=== PATIENT | male | born 1940 | race Caucasian/White ===

== ENCOUNTER 2017-07-13 17:55 | Emergency (ER) | payer MEDICARE, OTHER ==
[~2017-07-13] VITALS: Ht 172.7 cm; Wt 80.0 kg
[2017-07-13 18:10] VITALS: BP 189/86; PULSE 76; RESP 17; TEMP 98.2; O2SAT 100
[2017-07-13] MEDS ORDERED: SERO50TA PO (18:14)
[2017-07-13] MEDS ORDERED: ALPR.5 PO (18:14)
[2017-07-13] MEDS ORDERED: ALPRAZolam 0.5 MG TAB PO ONE (18:15)
[2017-07-13] MEDS ORDERED: HALOPERIDOL 2 MG TAB PO ONE (18:15)
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
[2017-07-13 18:41] VITALS: BP 154/74; PULSE 65; RESP 16; O2SAT 98
== END 2017-07-13 19:33 | disposition home or self-care (01) ==
LOC: NEPD 17:55
DX: F02.81 Dementia in other diseases classified elsewhere, unspecified severity, with behavioral disturbance (principal); G30.9 Alzheimer's disease, unspecified
CPT/HCPCS: 99282

== ENCOUNTER 2017-08-12 17:29 | Inpatient (IN) | payer MEDICARE, OTHER ==
[~2017-08-12] VITALS: Ht 177.8 cm; Wt 78.8 kg
[~2017-08-12 17:29] MED LIST: ALPR.5 PO; SERO50TA PO
[2017-08-12 17:38] VITALS: BP 177/84; PULSE 71; RESP 19; TEMP 98.1; O2SAT 99
[2017-08-12] MEDS ORDERED: ALPR.5 PO (17:44)
--- NOTE | 2017-08-12 18:06 | PD ---
HPI Chief Complaint: Medical Clearance Time Seen by Provider: 17:38 Travel History International Travel<30 days: No Contact w/Intl Traveler<30days: No Traveled to known affect area: No History of Present Illness HPI 77-year-old male with history of dementia on Seroquel and Xanax as needed, brought in by ambulance from home for evaluation of aggressive behavior towards . Upon arrival to the emergency department the patient is awake and alert and is oriented to person and place. He denies any physical complaints. Patient's arrived shortly after the patient did and she tells me that this is his third episode of aggressive behavior/paranoid/delusional thoughts. She tells me that there are times such as today where the patient does not recognize her and becomes paranoid that she is going to do something to him. This causes him to act aggressively. Here in the emergency department the patient is calm and recognizes his . PFSH Past Medical History Alzheimer's Disease: Yes Cancer: Yes (skin cancer) Diminished Hearing: No Neurologic: Yes Psychiatric: Yes Tetanus Vaccination: < 5 Years Influenza Vaccination: Yes Past Surgical History Cholecystectomy: Yes Other Surgery: Yes (TRIGGER FINGER, SKIN CA) Social History Alcohol Use: Yes (BEER DAILY) Tobacco Use: No Substance Use: No Allergies-Medications (Allergen,Severity, Reaction): Coded Allergies: No Known Allergies (Unverified , 08/12/17) Reported Meds & Prescriptions Reported Meds & Active Scripts Active Reported Xanax (Alprazolam) 0.5 Mg Tab 0.5 Mg PO Q6H PRN Seroquel (Quetiapine Fumarate) 50 Mg Tab 50 Mg PO DAILY Review of Systems Except as stated in HPI: all other systems reviewed are Neg Physical Exam Narrative GENERAL: Well-developed, well-nourished, awake, alert, calm, no apparent distress. SKIN: Focused skin assessment warm/dry. Left neck with surgical incision where a skin cancer was removed on with sutures in place, clean, dry, intact , no warmth or erythema. HEAD: Atraumatic. Normocephalic. EYES: Pupils equal and round. No scleral icterus. No injection or drainage. ENT: No nasal bleeding or discharge. Mucous membranes pink and moist. NECK: Trachea midline. No JVD. Skin exam as above. CARDIOVASCULAR: Regular rate and rhythm. RESPIRATORY: No accessory muscle use. Clear to auscultation. Breath sounds equal bilaterally. GASTROINTESTINAL: Abdomen soft, non-tender, nondistended. Hepatic and splenic margins not palpable. MUSCULOSKELETAL: No obvious deformities. No clubbing. No cyanosis. No edema. NEUROLOGICAL: Awake and alert. No obvious cranial nerve deficits. Motor grossly within normal limits. Normal speech. PSYCHIATRIC: Appropriate mood and affect; calm. Data Data Last Documented VS Vital Signs Date Time Temp Pulse Resp B/P (MAP) Pulse Ox O2 Delivery O2 Flow Rate FiO2 08/12/17 17:38 98.1 71 19 177/84 (115) 99 Orders Orders Complete Blood Count With Diff (08/12/17 17:39) Comprehensive Metabolic Panel (08/12/17 17:39) Thyroid Stimulating Hormone (08/12/17 17:39) Urinalysis - C+S If Indicated (08/12/17 17:39) Psych Screen (08/12/17 17:39) Labs Laboratory Tests Test 08/12/17 17:55 White Blood Count 9.5 TH/MM3 Red Blood Count 4.62 MIL/MM3 Hemoglobin 14.2 GM/DL Hematocrit 41.6 % Mean Corpuscular Volume 89.9 FL Mean Corpuscular Hemoglobin 30.7 PG Mean Corpuscular Hemoglobin Concent 34.2 % Red Cell Distribution Width 13.7 % Platelet Count 459 TH/MM3 Mean Platelet Volume 8.0 FL Neutrophils (%) (Auto) 81.7 % Lymphocytes (%) (Auto) 12.7 % Monocytes (%) (Auto) 5.0 % Eosinophils (%) (Auto) 0.1 % Basophils (%) (Auto) 0.5 % Neutrophils # (Auto) 7.8 TH/MM3 Lymphocytes # (Auto) 1.2 TH/MM3 Monocytes # (Auto) 0.5 TH/MM3 Eosinophils # (Auto) 0.0 TH/MM3 Basophils # (Auto) 0.0 TH/MM3 CBC Comment DIFF FINAL Differential Comment Blood Urea Nitrogen 16 MG/DL Creatinine 1.25 MG/DL Random Glucose 103 MG/DL Albumin 3.6 GM/DL Calcium Level 9.1 MG/DL Aspartate Amino Transf (AST/SGOT) 21 U/L Alanine Aminotransferase (ALT/SGPT) 15 U/L Sodium Level 139 MEQ/L Potassium Level 3.9 MEQ/L Chloride Level 105 MEQ/L Carbon Dioxide Level 26.2 MEQ/L Anion Gap 8 MEQ/L Estimat Glomerular Filtration Rate 56 ML/MIN MDM Medical Decision Making Medical Screen Exam Complete: Yes Emergency Medical Condition: Yes Differential Diagnosis Dementia, paranoia Narrative Course Vital signs reviewed. Labs reviewed. The patient has been medically cleared for psychiatric evaluation and disposition by them. Diagnosis Primary Impression: Dementia Qualified Codes: F03.91 - Unspecified dementia with behavioral disturbance Additional Impression: Aggressive behavior Arnaud Fitzgerald MD Aug 12, 2017 18:06
[2017-08-12 18:26] LABS: AUTOMATED NEUTROPHIL # 7.8 TH/MM3 (1.8-7.7); BASOPHIL % 0.5 % (0.0-2.0); EOSINOPHIL % 0.1 % (0.0-4.0); HEMATOCRIT 41.6 % (39.0-51.0); HEMOGLOBIN 14.2 GM/DL (13.0-17.0); LYMPH % 12.7 % (9.0-44.0); LYMPHOCYTE # 1.2 TH/MM3 (1.0-4.8); MEAN CELL VOLUME 89.9 FL (80.0-100.0); MEAN CORPUSCULAR HEMOGLOBIN 30.7 PG (27.0-34.0); MEAN CORPUSCULAR HGB CONC 34.2 % (32.0-36.0); MONOCYTE # 0.5 TH/MM3 (0-0.9); NEUT % 81.7 % (16.0-70.0); PLATELET COUNT 459 TH/MM3 (150-450); RED BLOOD COUNT 4.62 MIL/MM3 (4.50-5.90); RED CELL DISTRIBUTION WIDTH 13.7 % (11.6-17.2); WHITE BLOOD COUNT 9.5 TH/MM3 (4.0-11.0)
[2017-08-12 18:47] LABS: ALBUMIN 3.6 GM/DL (3.4-5.0); ALT (GPT) 15 U/L (12-78); AST (GOT) 21 U/L (15-37); BICARBONATE 26.2 MEQ/L (21.0-32.0); BLOOD UREA NITROGEN 16 MG/DL (7-18); CALCIUM 9.1 MG/DL (8.5-10.1); CHLORIDE 105 MEQ/L (98-107); CREATININE 1.25 MG/DL (0.60-1.30); GLOMERULAR FILTRATION RATE 56 ML/MIN (>89); GLUCOSE,RANDOM 103 MG/DL (74-106); SODIUM (NA) 139 MEQ/L (136-145)
[2017-08-12 18:57] LABS: ALKALINE PHOSPHATASE 71 U/L (45-117); TOTAL BILIRUBIN ADULT 0.3 MG/DL (0.2-1.0); TOTAL PROTEIN 7.5 GM/DL (6.4-8.2)
[2017-08-12 19:09] LABS: BILIRUBIN, URINE NEG (NEG); BLOOD, URINE NEG (NEG); GLUCOSE,URINE NEG (NEG); KETONE, URINE NEG (NEG); NITRITE,URINE NEG (NEG); PH, URINE 5.5 (5.0-8.5); URINE COLOR YELLOW (YELLW/STRAW); URINE LEUKOCYTE ESTERASE TRACE (NEG)
[2017-08-12] MEDS ORDERED: ACETAMINOPHEN 325 MG TAB PO PRN (21:00)
[2017-08-12] MEDS ORDERED: MAGNESIUM HYDROXIDE SUSP 30 ML CUP PO PRN (21:00)
[2017-08-12] MEDS ORDERED: NICOTINE 21 MG/24 HR PATCH T-DERMAL PRN (21:00)
[2017-08-12] MEDS ORDERED: ALUMINUM/MAGNESIUM/SIMETH 30 ML CUP PO PRN (21:00)
[2017-08-12 22:00] VITALS: BP 185/84; PULSE 69; RESP 18; TEMP 97.3; O2SAT 97
[2017-08-13 05:33] VITALS: BP 189/88; PULSE 95; RESP 18; TEMP 97.9; O2SAT 96
[2017-08-13 07:35] VITALS: BP 164/92; PULSE 77
[2017-08-13 09:39] LABS: BICARBONATE 22.2 MEQ/L (21.0-32.0); BLOOD UREA NITROGEN 17 MG/DL (7-18); CALCIUM 9.5 MG/DL (8.5-10.1); CHLORIDE 104 MEQ/L (98-107); CREATININE 1.18 MG/DL (0.60-1.30); GLOMERULAR FILTRATION RATE 60 ML/MIN (>89); GLUCOSE,RANDOM 134 MG/DL (74-106); SODIUM (NA) 138 MEQ/L (136-145)
[2017-08-13 09:40] LABS: CHOLESTEROL 216 MG/DL (120-200); TRIGLYCERIDES 94 MG/DL (42-150)
[2017-08-13 09:42] LABS: CHOLESTEROL/ HDL RATIO 5.24 RATIO; HDL CHOLESTEROL 41.2 MG/DL (40.0-60.0); LDL CHOLESTEROL 156 MG/DL (0-99)
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
[2017-08-13] MEDS ORDERED: HALOPERIDOL LACTATE 5 MG/ML AMP IM PRN (12:00)
[2017-08-13] MEDS ORDERED: LORazepam 2 MG TAB PO PRN (12:15)
[2017-08-13] MEDS ORDERED: FLUMAZENIL 0.5 MG/5 ML VIAL IV PUSH PRN (12:15)
[2017-08-13] MEDS ORDERED: LORazepam 2 MG/ML VIAL IM PRN ×4 (12:15)
[2017-08-13 13:03] LABS: HEMOGLOBIN A1C 5.8 % (4.3-6.0)
[2017-08-13 14:25] VITALS: BP 191/90; PULSE 90; RESP 17; TEMP 97.2; O2SAT 97
[2017-08-13 14:30] VITALS: BP 191/90; PULSE 90; RESP 17; O2SAT 98
[2017-08-13] MEDS: cloNIDine HCL 0.1 MG TAB PO PRN (14:31)
[2017-08-13 15:40] VITALS: BP 161/70; PULSE 69; RESP 16; TEMP 98.1; O2SAT 98
--- NOTE | 2017-08-13 15:51 | PD.CONS ---
[facility] By Dr. Quick Reason for Consult Medical management, hypertension Primary Care Physician Zac Preciado MD Diagnoses: (1) Hypertension (2) Dementia (3) Aggressive behavior History of Present Illness 77-year-old male with a history significant for dementia admitted to the psychiatric unit for aggressive behavior toward his . The patient has significant dementia and d cannot contribute to the history. He says he feels fine. He can answer yes or no to some questions but is mostly inappropriate and confused. History obtained mostly from the chart. I attempted to call his but no one answered the phone. Since arrival to the hospital, the patient is noted to have elevated blood pressure. He denies any history of hypertension but as noted above he is quite confused. Review of Systems ROS Limitations: Clinical Condition, Altered Mental Status, Psychotic Past Family Social History Allergies: Coded Allergies: No Known Allergies (Unverified , 08/12/17) Past Medical History Dementia Past Surgical History Cholecystectomy Reported Medications Reported Meds & Active Scripts Active Reported Xanax (Alprazolam) 0.5 Mg Tab 0.5 Mg PO Q6H PRN Seroquel (Quetiapine Fumarate) 50 Mg Tab 50 Mg PO DAILY Family History Unable to obtain Social History Reportedly drank 1-2 beers daily. No reports of tobacco use. He normally lives at home with his . Physical Exam Vital Signs Vital Signs Date Time Temp Pulse Resp B/P (MAP) Pulse Ox O2 Delivery O2 Flow Rate FiO2 08/13/17 15:40 98.1 69 16 161/70 (100) 98 08/13/17 14:30 90 17 191/90 (123) 98 08/13/17 14:25 97.2 90 17 191/90 (123) 97 08/13/17 07:35 77 164/92 (116) 08/13/17 05:33 97.9 95 18 189/88 (121) 96 08/12/17 22:00 97.3 69 18 185/84 (117) 97 08/12/17 17:38 98.1 71 19 177/84 (115) 99 Physical Exam GENERAL: Obviously demented patient, in no apparent distress. HEAD: Atraumatic. Normocephalic. No temporal or scalp tenderness. EYES: Pupils equal round and reactive. NECK: Trachea midline. No JVD or lymphadenopathy. Supple, nontender, no meningeal signs. CARDIOVASCULAR: Regular rate and rhythm without murmurs, gallops, or rubs. RESPIRATORY: Clear to auscultation. Breath sounds equal bilaterally. No wheezes , rales, or rhonchi. GASTROINTESTINAL: Abdomen soft, non-tender, nondistended. MUSCULOSKELETAL: Extremities without clubbing, cyanosis, or edema. No joint tenderness, effusion, or edema noted. No calf tenderness. Negative Homans sign bilaterally. NEUROLOGICAL: Awake and alert. Oriented to self only. Motor and sensory grossly within normal limits. Disorganized speech. Laboratory Laboratory Tests Test 08/12/17 17:55 08/12/17 18:35 08/13/17 08:00 White Blood Count 9.5 Red Blood Count 4.62 Hemoglobin 14.2 Hematocrit 41.6 Mean Corpuscular Volume 89.9 Mean Corpuscular Hemoglobin 30.7 Mean Corpuscular Hemoglobin Concent 34.2 Red Cell Distribution Width 13.7 Platelet Count 459 Mean Platelet Volume 8.0 Neutrophils (%) (Auto) 81.7 Lymphocytes (%) (Auto) 12.7 Monocytes (%) (Auto) 5.0 Eosinophils (%) (Auto) 0.1 Basophils (%) (Auto) 0.5 Neutrophils # (Auto) 7.8 Lymphocytes # (Auto) 1.2 Monocytes # (Auto) 0.5 Eosinophils # (Auto) 0.0 Basophils # (Auto) 0.0 CBC Comment DIFF FINAL Differential Comment Blood Urea Nitrogen 16 17 Creatinine 1.25 1.18 Random Glucose 103 134 Total Protein 7.5 Albumin 3.6 Calcium Level 9.1 9.5 Alkaline Phosphatase 71 Aspartate Amino Transf (AST/SGOT) 21 Alanine Aminotransferase (ALT/SGPT) 15 Total Bilirubin 0.3 Sodium Level 139 138 Potassium Level 3.9 3.5 Chloride Level 105 104 Carbon Dioxide Level 26.2 22.2 Anion Gap 8 12 Estimat Glomerular Filtration Rate 56 60 Thyroid Stimulating Hormone 3rd Gen 2.320 Ethyl Alcohol Level LESS THAN 3 Urine Color YELLOW Urine Turbidity CLEAR Urine pH 5.5 Urine Specific [place] 1.022 Urine Protein TRACE Urine Glucose (UA) NEG Urine Ketones NEG Urine Occult Blood NEG Urine Nitrite NEG Urine Bilirubin NEG Urine Urobilinogen 2.0 Urine Leukocyte Esterase TRACE Urine RBC 1 Urine WBC 3 Microscopic Urinalysis Comment CULT NOT INDICATED Urine Opiates Screen NEG Urine Barbiturates Screen NEG Urine Amphetamines Screen NEG Urine Benzodiazepines Screen POS Urine Cocaine Screen NEG Urine Cannabinoids Screen NEG Hemoglobin A1c 5.8 Triglycerides Level 94 Cholesterol Level 216 LDL Cholesterol 156 HDL Cholesterol 41.2 Cholesterol/HDL Ratio 5.24 Result Diagram: 08/12/17 1755 08/13/17 0800 Assessment and Plan Problem List: (1) Dementia with behavioral disturbance ICD Code: F03.91 - Unspecified dementia with behavioral disturbance Plan: Management per psychiatry. (2) Hypertension ICD Code: I10 - Essential (primary) hypertension Plan: I suspect he has undiagnosed or untreated hypertension. He cannot contribute to his medical history. Start amlodipine 5 mg daily. This may need to be titrated up or a second agent may need to be added. Clonidine PRN Heart healthy diet Assessment and Plan We will continue to follow. Discussed Condition With RN Problem Qualifiers (1) Dementia: Qualified Codes: G30.9 - Alzheimer's disease, unspecified; F02.81 - Dementia in other diseases classified elsewhere with behavioral disturbance Penny Becerra MD Aug 13, 2017 15:51
[2017-08-13] MEDS: amLODIPine BESYLATE 5 MG TAB PO SCH (16:04)
[2017-08-13] MEDS: QUEtiapine FUMARATE 25 MG TAB PO SCH (20:43)
[2017-08-13] MEDS: MELATONIN 5 MG TAB PO PRN (20:43)
[2017-08-14 05:32] VITALS: BP 135/65; PULSE 72; RESP 18; TEMP 98.4; O2SAT 99
[2017-08-14] MEDS: amLODIPine BESYLATE 5 MG TAB PO SCH (08:13)
[2017-08-14] MEDS ORDERED: QUEtiapine FUMARATE 25 MG TAB PO SCH (09:00)
--- NOTE | 2017-08-14 11:47 | EKG ---
Date Performed: 08/13/2017 Time Performed: 13:05:02 PTAGE: 77 years EKG: Sinus rhythm MINIMAL ST DEPRESSION BORDERLINE ECG Since the PREVIOUS TRACING , no significant change noted PREVIOUS TRACIN10/16/2002 10.22 DOCTOR: Dorothea Rausch Interpretating Date/Time 08/14/2017 11:45:38
--- NOTE | 2017-08-14 15:27 | HHI.PYPN ---
Subjective Chief Complaint: Dementia with behavioral disturbance Remarks Patient initially seen and admitted by Dr. Steven Quick his H&P reviewed and agreed with. I have finished the inpatient psychiatric admission template, and review the med reconciliation. Patient seen in the day room with nurse Janine. He is alert calm cooperative though diffusely confused all 4 spheres. There is edge of irritability when questioning him about his memory. Otherwise she is been no behavior problem. Compliant with medication. For now continue treatment Kameron Verma's sign first opinion petition supporting Mathias act I agree patient meets criteria for involuntary psychiatric hospitalization thus will cosign second opinion petition supporting Mathias act. I also agree the patient does not have capacity to sign for either admission or for medications aside agree also with a health care surrogate and guardian advocate Review of Systems Except as stated in HPI: all other systems reviewed are Neg Mental Status Examination Appearance: Appropriate Consciousness: Alert Orientation: Person Motor Activity: Normal gait Speech: Unremarkable Language: Other (rambling) Fund of Knowledge: Inadequate Attention and Concentration: Inadequate Memory: Impaired Mood: Good Affect: Euthymic Thought Process & Associations: Disorganized (in setting of dementia) Thought Content: Other (poverty of thought) Hallucination Type: None Delusion Type: Paranoid Suicidal Ideation: No (unreliable to contract for safety) Suicidal Plan: No Suicidal Intention: No Homicidal Ideation: No (unreliable to contract for safety) Homicidal Plan: No Homicidal Intention: No Insight: Poor Judgment: Poor Results Vitals/IOs Vital Signs Date Time Temp Pulse Resp B/P (MAP) Pulse Ox O2 Delivery O2 Flow Rate FiO2 08/14/17 05:32 98.4 72 18 135/65 (88) 99 Intake and Output 08/14/17 08/14/17 08/15/17 08:00 16:00 00:00 Intake Total 240 ml 240 ml Balance 240 ml 240 ml Assessment & Plan Problem List: (1) Dementia ICD Codes: F03.90 - Unspecified dementia without behavioral disturbance Status: Acute Assessment & Plan Estimated LOS: 5-7 days at this time patient meets criteria for involuntary psychiatric hospitalization under the Mathias act thus will cosign second opinion petition, first opinion was signed by Dr. Quick Justification for Cont. Inpt. At this point patient will decompensate a place to a lower level of care Discharge Planning To be determined Request HC Surrog/Guard Advoc?: Yes Problem Qualifiers (1) Dementia: Qualified Codes: G30.9 - Alzheimer's disease, unspecified; F02.81 - Dementia in other diseases classified elsewhere with behavioral disturbance El Kendall MD Aug 14, 2017 15:27
--- NOTE | 2017-08-14 15:28 | HHI.PR ---
Subjective Remarks Follow-up on patient with hypertension. Patient seen and examined. Patient denies any acute medical complaints. Denies any fever or chills. Denies any chest pain or shortness of breath. Denies any nausea, vomiting or abdominal pain. Denies any lower extremity swelling. Objective Vitals Vital Signs Date Time Temp Pulse Resp B/P (MAP) Pulse Ox O2 Delivery O2 Flow Rate FiO2 08/14/17 05:32 98.4 72 18 135/65 (88) 99 08/13/17 15:40 98.1 69 16 161/70 (100) 98 I/O 08/13/17 08/13/17 08/13/17 08/14/17 08/14/17 08/14/17 07:00 15:00 23:00 07:00 15:00 23:00 Intake Total 480 ml 480 ml Balance 480 ml 480 ml Intake Oral 480 ml 480 ml # Voids 2 Result Diagram: 08/12/17 1755 08/13/17 0800 Objective Remarks GENERAL: Well-nourished, well-developed male patient in NAD. Awake and alert. Oriented to self only. SKIN: Warm and dry. No rash. HEAD: Normocephalic. Atraumatic. EYES: EOMI. No scleral icterus. No injection or drainage. ENT: No nasal bleeding or discharge. Mucous membranes pink and moist. NECK: Trachea midline. CARDIOVASCULAR: Regular rate and rhythm. S1, S2 noted. No murmur appreciated. RESPIRATORY: Nonlabored. Clear to auscultation. Breath sounds equal bilaterally. GASTROINTESTINAL: Abdomen soft, non-tender, nondistended. Normoactive bowel sounds x4. MUSCULOSKELETAL: No obvious deformities. Extremities without clubbing, cyanosis , or edema. NEUROLOGICAL: Awake and alert. No obvious cranial nerve deficits. Able to move all extremities spontaneously. No focal neurologic finding appreciated. Normal speech. PSYCHIATRIC: Oriented to self only. Appropriate mood and affect; insight and judgment abnormal. Medications and IVs Current Medications Medications (Trade) Dose Ordered Sig/Anahy Route Start Time Stop Time Status Last Admin (Tylenol) 650 mg Q4H PRN PO 08/12/17 21:00 (Milk Of Magnesia Liq) 30 ml DAILY PRN PO 08/12/17 21:00 (Mag-Al Plus Susp Liq) 30 ml Q6H PRN PO 08/12/17 21:00 (Habitrol 21 Mg Patch.24 Hr) 1 patch DAILY PRN T-DERMAL 08/12/17 21:00 (Catapres) 0.1 mg Q8HR PRN PO 08/13/17 11:15 08/13/17 14:31 (SEROquel) 50 mg HS PO 08/13/17 21:00 08/13/17 20:43 (Haldol Inj) 1 mg Q6H PRN IM 08/13/17 12:00 (SEROquel) 25 mg DAILY PO 08/14/17 09:00 08/14/17 08:13 (Melatonin) 5 mg HS PRN PO 08/13/17 12:00 08/13/17 20:43 (Romazicon Inj) 0.2 mg Q1M PRN IV PUSH 08/13/17 12:15 (Ativan) 1 mg Q4H PRN PO 08/13/17 12:15 (Ativan Inj) 1 mg Q4H PRN IM 08/13/17 12:15 (Ativan) 2 mg Q2H PRN PO 08/13/17 12:15 (Ativan Inj) 2 mg Q2H PRN IM 08/13/17 12:15 (Ativan Inj) 2 mg Q1H PRN IM 08/13/17 12:15 (Ativan Inj) 2 mg Q15M PRN IM 08/13/17 12:15 (Norvasc) 5 mg DAILY PO 08/13/17 15:45 08/14/17 08:13 A/P Problem List: (1) Dementia with behavioral disturbance ICD Code: F03.91 - Unspecified dementia with behavioral disturbance (2) Hypertension ICD Code: I10 - Essential (primary) hypertension Assessment and Plan 77yo male with dementia and HTN: Dementia with behavioral disturbance -Management per psychiatric team Hypertension -Started on amlodipine 5 mg daily with good response -Clonidine when necessary with parameters -Continue to monitor BP and adjust treatment accordingly DVT prophylaxis -Patient is ambulatory Alicja Molina Aug 14, 2017 15:28
[2017-08-14] MEDS: QUEtiapine FUMARATE 25 MG TAB PO SCH ×2 (16:00→21:13)
[2017-08-14 17:36] VITALS: BP 152/74; PULSE 83; RESP 18; TEMP 97.7; O2SAT 97
[2017-08-15 06:23] VITALS: BP 132/70; PULSE 67; RESP 18; TEMP 97.4; O2SAT 99
[2017-08-15] MEDS: amLODIPine BESYLATE 5 MG TAB PO SCH (08:47)
[2017-08-15] MEDS: QUEtiapine FUMARATE 25 MG TAB PO SCH ×4 (08:48→20:21)
--- NOTE | 2017-08-15 10:47 | HHI.PYPN ---
Subjective Chief Complaint: Dementia with behavioral disturbance Remarks Patient seen in [facility] with nurse Janine, and counselor Marilyn, patient continues diffusely confused and disoriented, it appears patient had some behavioral issues yesterday evening necessitating and when necessary medication of Haldol. Patient so far no behavior problems today's compliant medication. Will adjust the times Seroquel to 50 mg at 2 PM and 6 PM continue at bedtime dose no change Review of Systems Except as stated in HPI: all other systems reviewed are Neg Mental Status Examination Appearance: Appropriate Consciousness: Alert Orientation: Person Motor Activity: Normal gait Speech: Unremarkable Language: Other (rambling) Fund of Knowledge: Inadequate Attention and Concentration: Inadequate Memory: Impaired Mood: Good Affect: Euthymic Thought Process & Associations: Disorganized (in setting of dementia) Thought Content: Other (poverty of thought) Hallucination Type: None Delusion Type: Paranoid Suicidal Ideation: No (unreliable to contract for safety) Suicidal Plan: No Suicidal Intention: No Homicidal Ideation: No (unreliable to contract for safety) Homicidal Plan: No Homicidal Intention: No Insight: Poor Judgment: Poor Results Vitals/IOs Vital Signs Date Time Temp Pulse Resp B/P (MAP) Pulse Ox O2 Delivery O2 Flow Rate FiO2 08/15/17 06:23 97.4 67 18 132/70 (90) 99 Assessment & Plan Problem List: (1) Dementia ICD Codes: F03.90 - Unspecified dementia without behavioral disturbance Status: Acute Assessment & Plan Estimated LOS: days patient continues diffusely confused and disorganized, needed been as needed medication last night. She medication adjustment above Justification for Cont. Inpt. At this time patient would decompensated placed on the lower level of care Discharge Planning Placement needs to be determined Request HC Surrog/Guard Advoc?: Yes Problem Qualifiers (1) Dementia: Qualified Codes: G30.1 - Alzheimer's disease with late onset; F02.81 - Dementia in other diseases classified elsewhere with behavioral disturbance El Kendall MD Aug 15, 2017 10:47
--- NOTE | 2017-08-15 13:37 | HHI.PR ---
Subjective Remarks Follow-up visit for HTN. Patient seen and examined in the day room. He is awake and alert answering questions, he denies any fevers, chills, nausea, vomiting, diarrhea, headache, lightheadedness, dizziness, or leg swelling. He reports that he is feeling fine today with no acute concerns. Objective Vitals Vital Signs Date Time Temp Pulse Resp B/P (MAP) Pulse Ox O2 Delivery O2 Flow Rate FiO2 08/15/17 06:23 97.4 67 18 132/70 (90) 99 08/14/17 17:36 97.7 83 18 152/74 (100) 97 I/O 08/14/17 08/14/17 08/14/17 08/15/17 08/15/17 08/15/17 07:00 15:00 23:00 07:00 15:00 23:00 Intake Total 720 ml 360 ml 120 ml Balance 720 ml 360 ml 120 ml Intake Oral 720 ml 360 ml 120 ml # Voids 3 1 1 Result Diagram: 08/12/17 1755 08/13/17 0800 Objective Remarks GENERAL: Well-nourished, well-developed male patient in NAD. Awake and alert. SKIN: Warm and dry. No rash. HEAD: Normocephalic. Atraumatic. EYES: EOMI. No scleral icterus. No injection or drainage. ENT: No nasal bleeding or discharge. Airway patent. NECK: Trachea midline. CARDIOVASCULAR: Regular rate and rhythm. No murmur appreciated. RESPIRATORY: Nonlabored. Clear to auscultation. Breath sounds equal bilaterally. GASTROINTESTINAL: Abdomen soft, non-tender, nondistended. Normoactive bowel sounds x4. MUSCULOSKELETAL: No obvious deformities. Extremities without clubbing, cyanosis , or edema. NEUROLOGICAL: Awake and alert. No obvious cranial nerve deficits. Able to move all extremities spontaneously. No focal neurologic finding appreciated. Normal speech. A/P Problem List: (1) Dementia with behavioral disturbance ICD Code: F03.91 - Unspecified dementia with behavioral disturbance (2) Hypertension ICD Code: I10 - Essential (primary) hypertension Assessment and Plan 77yo male with dementia and HTN: Dementia with behavioral disturbance -Management per psychiatric team Hypertension -continue amlodipine 5 mg daily -Clonidine when necessary with parameters -BP stable DVT prophylaxis -Patient is ambulatory Discussed with nurse, [facility] will sign off please reconsult if needed, thank you. Nicki Clements Aug 15, 2017 13:37
[2017-08-15] MEDS ORDERED: ARTIFICIAL TEARS OPTH SOLN 15 ML BTL EACH EYE PRN (13:45)
[2017-08-15 17:20] VITALS: BP 182/88; PULSE 90; RESP 16; TEMP 98.3; O2SAT 96
[2017-08-15] MEDS: cloNIDine HCL 0.1 MG TAB PO PRN (17:37)
[2017-08-16 06:25] VITALS: BP 142/67; PULSE 58; RESP 17; TEMP 97.9; O2SAT 99
[2017-08-16] MEDS: amLODIPine BESYLATE 5 MG TAB PO SCH (09:00)
[2017-08-16] MEDS ORDERED: LORATADINE 10 MG TAB PO SCH (09:00)
--- NOTE | 2017-08-16 10:33 | HHI.PYPN ---
Subjective Chief Complaint: Dementia with behavioral disturbance Remarks Patient seen in day room with nurse Kim, chart reviewed, patient discussed with nurse, patient compliant medication. Patient continues diffusely confused disoriented those different behavioral problems. 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 Afterwards I met with patient's and counselor Marilyn. shared with us patient's increasingly missed behavior including increasingly physically aggressive with her. of this time realizes she cannot care for her at home. And that she wishes some placed in appropriate placement. We did discuss placements we are looking into [facility] for this gentleman. Review of Systems Except as stated in HPI: all other systems reviewed are Neg Mental Status Examination Appearance: Appropriate Consciousness: Alert Orientation: Person Motor Activity: Normal gait Speech: Unremarkable Language: Other (rambling) Fund of Knowledge: Inadequate Attention and Concentration: Inadequate Memory: Impaired Mood: Good Affect: Euthymic Thought Process & Associations: Disorganized (in setting of dementia) Thought Content: Other (poverty of thought) Hallucination Type: None Delusion Type: Paranoid Suicidal Ideation: No (unreliable to contract for safety) Suicidal Plan: No Suicidal Intention: No Homicidal Ideation: No (unreliable to contract for safety) Homicidal Plan: No Homicidal Intention: No Insight: Poor Judgment: Poor Results Vitals/IOs Vital Signs Date Time Temp Pulse Resp B/P (MAP) Pulse Ox O2 Delivery O2 Flow Rate FiO2 08/16/17 06:25 97.9 58 17 142/67 (92) 99 Intake and Output 08/16/17 08/16/17 08/17/17 08:00 16:00 00:00 Intake Total 240 ml Balance 240 ml Assessment & Plan Problem List: (1) Dementia ICD Codes: F03.90 - Unspecified dementia without behavioral disturbance Status: Acute Assessment & Plan Estimated LOS: days patient weighs confused demented though no significant behavioral problems. After meeting with patient's today with agree that patient would be appropriately placed perhaps that [facility]. Will investigate that Justification for Cont. Inpt. At this time patient will decompensate if placed in a lower level of care Discharge Planning Continue to explore placement issues perhaps [facility] Request HC Surrog/Guard Advoc?: Yes Problem Qualifiers (1) Dementia: Qualified Codes: G30.1 - Alzheimer's disease with late onset; F02.81 - Dementia in other diseases classified elsewhere with behavioral disturbance El Kendall MD Aug 16, 2017 10:32
[2017-08-16] MEDS: QUEtiapine FUMARATE 25 MG TAB PO SCH ×3 (14:00→20:19)
--- NOTE | 2017-08-16 14:39 | PD.TTN ---
Patient Problems 1. Discharge planning 2. Medication compliance 3. Knowledge deficit 4. Lack of coping skills Progress Toward Goals Provider Present: Dr. Argelia Kendall Provider Input: 08/14/17 patient is new over weekend 08/16/17 patient is very confused, but no issues overall yet since admission maybe some sundowning will meet today Psychiatric Counselors Present: Marilyn Norwood LCSW Psych Therapist Input: 08/14/17 new to counselor but Lonny spoke with and she is considering placement and he has funding 08/16/17 met with and agrees to Sherri Tirado, patient is overall adjusting well Group Spec/RT/OT/[place] Present: ADITI Payan Group Spec/RT/OT/[place] Input: 08/14/17 new to rec therapy 08/16/17 he attends some groups with encouragement and unable to tolerate simple tasks Marilyn Norwood LCSW Aug 16, 2017 14:39
[2017-08-16 18:00] VITALS: BP 144/64; PULSE 71; RESP 20; TEMP 98; O2SAT 99
[2017-08-17] MEDS: MELATONIN 5 MG TAB PO PRN ×2 (00:44→21:21)
[2017-08-17 06:08] VITALS: BP 181/81; PULSE 56; RESP 17; TEMP 97.8; O2SAT 97
[2017-08-17 06:37] VITALS: BP 158/86
[2017-08-17] MEDS: amLODIPine BESYLATE 5 MG TAB PO SCH (08:21)
--- NOTE | 2017-08-17 11:02 | HHI.PYPN ---
Subjective Chief Complaint: Dementia with behavioral disturbance Remarks Patient seen in [facility] with patient's . Patient's case was continued for 4 weeks per Quincy Bello. With the make appointed health care surrogate. Is calm during court though remain markedly confused disoriented. Though there is no behavioral outbursts. For now continue treatment Review of Systems Except as stated in HPI: all other systems reviewed are Neg Mental Status Examination Appearance: Appropriate Consciousness: Alert Orientation: Person Motor Activity: Normal gait Speech: Unremarkable Language: Other (rambling) Fund of Knowledge: Inadequate Attention and Concentration: Inadequate Memory: Impaired Mood: Good Affect: Euthymic Thought Process & Associations: Disorganized (in setting of dementia) Thought Content: Other (poverty of thought) Hallucination Type: None Delusion Type: Paranoid Suicidal Ideation: No (unreliable to contract for safety) Suicidal Plan: No Suicidal Intention: No Homicidal Ideation: No (unreliable to contract for safety) Homicidal Plan: No Homicidal Intention: No Insight: Poor Judgment: Poor Results Vitals/IOs Vital Signs Date Time Temp Pulse Resp B/P (MAP) Pulse Ox O2 Delivery O2 Flow Rate FiO2 08/17/17 06:08 97.8 56 17 181/81 (114) 97 Intake and Output 08/17/17 08/17/17 08/18/17 08:00 16:00 00:00 Intake Total 0 ml Balance 0 ml Assessment & Plan Problem List: (1) Dementia ICD Codes: F03.90 - Unspecified dementia without behavioral disturbance Status: Acute Assessment & Plan Estimated LOS: days patient seen in [facility], his case was continued the left to be health care surrogate patient compliant medications continues markedly disorganized and confused Justification for Cont. Inpt. At this time patient will decompensate in place to the lower level of care Discharge Planning This needs to be discussed with patient's Request HC Surrog/Guard Advoc?: Yes Problem Qualifiers (1) Dementia: Qualified Codes: G30.1 - Alzheimer's disease with late onset; F02.81 - Dementia in other diseases classified elsewhere with behavioral disturbance El Kendall MD Aug 17, 2017 11:02
[2017-08-17] MEDS: QUEtiapine FUMARATE 25 MG TAB PO SCH ×3 (12:45→21:21)
[2017-08-17 14:45] VITALS: BP 177/74; PULSE 69; RESP 18; TEMP 97.6; O2SAT 99
[2017-08-18 06:30] VITALS: BP 153/73; PULSE 58; RESP 16; TEMP 97.4; O2SAT 99
[2017-08-18] MEDS: amLODIPine BESYLATE 5 MG TAB PO SCH (08:05)
--- NOTE | 2017-08-18 10:25 | HHI.PYPN ---
Subjective Chief Complaint: Dementia with behavioral disturbance Remarks Patient seen in [facility] with counselor sabrina, discussed with nurse, patient compliant medication. Patient continues no behavior problem. He continues markedly confused and disoriented, reflection of his dementia. It appears maybe a placement available after the weekend. For now continue treatment Review of Systems Except as stated in HPI: all other systems reviewed are Neg Mental Status Examination Appearance: Appropriate Consciousness: Alert Orientation: Person Motor Activity: Normal gait Speech: Unremarkable Language: Other (rambling) Fund of Knowledge: Inadequate Attention and Concentration: Inadequate Memory: Impaired Mood: Good Affect: Euthymic Thought Process & Associations: Disorganized (in setting of dementia) Thought Content: Other (poverty of thought) Hallucination Type: None Delusion Type: Paranoid Suicidal Ideation: No (unreliable to contract for safety) Suicidal Plan: No Suicidal Intention: No Homicidal Ideation: No (unreliable to contract for safety) Homicidal Plan: No Homicidal Intention: No Insight: Poor Judgment: Poor Results Vitals/IOs Vital Signs Date Time Temp Pulse Resp B/P (MAP) Pulse Ox O2 Delivery O2 Flow Rate FiO2 08/18/17 06:30 97.4 58 16 153/73 (99) 99 Intake and Output 08/18/17 08/18/17 08/19/17 08:00 16:00 00:00 Intake Total 360 ml Balance 360 ml Assessment & Plan Problem List: (1) Dementia ICD Codes: F03.90 - Unspecified dementia without behavioral disturbance Status: Acute Assessment & Plan Estimated LOS: days patient continues demented confused though no behavior problems. Compliant medication. It appears that may be placement level after this weekend Justification for Cont. Inpt. At this time patient would decompensated placed in a lower level of care Discharge Planning Possible placement after this weekend perhaps at [facility] Request HC Surrog/Guard Advoc?: Yes Problem Qualifiers (1) Dementia: Qualified Codes: G30.1 - Alzheimer's disease with late onset; F02.81 - Dementia in other diseases classified elsewhere with behavioral disturbance El Kendall MD Aug 18, 2017 10:25
[2017-08-18] MEDS: LORazepam 1 MG TAB PO PRN (12:04)
[2017-08-18] MEDS: QUEtiapine FUMARATE 25 MG TAB PO SCH ×3 (14:40→20:27)
[2017-08-18 17:51] VITALS: BP 134/64; PULSE 69; RESP 17; TEMP 98.1; O2SAT 97
[2017-08-19] MEDS: MELATONIN 5 MG TAB PO PRN (01:11)
[2017-08-19 06:00] VITALS: BP 148/79; PULSE 63; RESP 16; TEMP 98.3; O2SAT 97
[2017-08-19] MEDS: amLODIPine BESYLATE 5 MG TAB PO SCH (08:11)
--- NOTE | 2017-08-19 12:01 | HHI.PYPN ---
Subjective Chief Complaint: Dementia with behavioral disturbance Remarks Pt seen and discussed with staff. He remains pleasantly confused and disorganized. He slept well last night and has not been aggressive. He requires significant care and assistance with ADLs due to cognitive impairments. . No SI/ HI Mental Status Examination Appearance: Appropriate Consciousness: Alert Orientation: Person Motor Activity: Normal gait Speech: Unremarkable Language: Other (rambling) Fund of Knowledge: Inadequate Attention and Concentration: Inadequate Memory: Impaired Mood: Good Affect: Euthymic Thought Process & Associations: Disorganized (in setting of dementia) Thought Content: Other (poverty of thought) Hallucination Type: None Delusion Type: Paranoid Suicidal Ideation: No Suicidal Plan: No Suicidal Intention: No Homicidal Ideation: No Homicidal Plan: No Homicidal Intention: No Insight: Poor Judgment: Poor Results Vitals/IOs Vital Signs Date Time Temp Pulse Resp B/P (MAP) Pulse Ox O2 Delivery O2 Flow Rate FiO2 08/19/17 06:00 98.3 63 16 148/79 (102) 97 Intake and Output 08/19/17 08/19/17 08/20/17 08:00 16:00 00:00 Intake Total 240 ml 240 ml Balance 240 ml 240 ml Assessment & Plan Problem List: (1) Dementia ICD Codes: F03.90 - Unspecified dementia without behavioral disturbance Status: Acute Assessment & Plan Continue current tx plan. Estimated LOS: days Justification for Cont. Inpt. risk of decompensation Request HC Surrog/Guard Advoc?: Yes Problem Qualifiers (1) Dementia: Qualified Codes: G30.1 - Alzheimer's disease with late onset; F02.81 - Dementia in other diseases classified elsewhere with behavioral disturbance Dagmar Beltre MD Aug 19, 2017 12:01
[2017-08-19] MEDS: QUEtiapine FUMARATE 25 MG TAB PO SCH ×3 (14:00→20:16)
[2017-08-19 17:59] VITALS: BP 127/63; PULSE 89; RESP 18; TEMP 98.2; O2SAT 95
[2017-08-19] MEDS ORDERED: HALOPERIDOL LACTATE 5 MG/ML AMP IM ONE (18:15)
[2017-08-19] MEDS ORDERED: LORazepam 2 MG/ML VIAL IM ONE (18:15)
[2017-08-19] MEDS: hydrOXYzine HCL 50 MG TAB PO PRN (20:19)
[2017-08-20 05:56] VITALS: BP 154/75; PULSE 62; RESP 16; TEMP 98.2; O2SAT 98
[2017-08-20] MEDS: amLODIPine BESYLATE 5 MG TAB PO SCH (09:00)
[2017-08-20] MEDS: LORazepam 1 MG TAB PO PRN (09:01)
[2017-08-20] MEDS: hydrOXYzine HCL 50 MG TAB PO PRN ×2 (12:58→20:16)
[2017-08-20] MEDS: QUEtiapine FUMARATE 25 MG TAB PO SCH ×3 (12:58→20:16)
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
[2017-08-20 17:41] VITALS: BP 130/64; PULSE 72; RESP 16; TEMP 98.1; O2SAT 99
[2017-08-20 18:00] VITALS: BP 130/64; PULSE 72; RESP 16; TEMP 98.1; O2SAT 99
[2017-08-21 06:35] VITALS: BP 145/71; PULSE 73; RESP 16; TEMP 98.2; O2SAT 97
[2017-08-21] MEDS: amLODIPine BESYLATE 5 MG TAB PO SCH (09:35)
[2017-08-21] MEDS ORDERED: SERO50TA PO (10:02)
[2017-08-21] MEDS ORDERED: AMLO5 PO (10:02)
[2017-08-21] MEDS ORDERED: MELA5 PO (10:02)
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
--- NOTE | 2017-08-21 10:29 | PD.TTN ---
Patient Problems 1. Discharge planning 2. Medication compliance 3. Knowledge deficit 4. Lack of coping skills Progress Toward Goals Provider Present: Dr. Argelia Kendall Provider Input: 08/14/17 patient is new over weekend 08/16/17 patient is very confused, but no issues overall yet since admission maybe some owning will meet today 08/21/17 DC today Psychiatric Counselors Present: Marilyn Norwood LCSW Psych Therapist Input: 08/14/17 new to counselor but Lonny spoke with and she is considering placement and he has funding 08/16/17 met with and agrees to [facility], patient is overall adjusting well Group Spec/RT/OT/[place] Present: ADITI Payan, Andre Fair, OT Group Spec/RT/OT/[place] Input: 08/14/17 new to rec therapy 08/16/17 he attends some groups with encouragement and unable to tolerate simple tasks 08/21/17 Attends select groups and unable to tolerate due to confusion Lainey Cruz/Laine Aug 21, 2017 10:29
== END 2017-08-21 12:45 | DRG 884 ==
LOC: NEPD 17:29 → NEDA 20:59 → H250 22:00
PROVIDERS: ADMIT Psychiatry & Neurology Psychiatry; ATTEND Psychiatry & Neurology Psychiatry
DX: F03.90 Unspecified dementia, unspecified severity, without behavioral disturbance, psychotic disturbance, mood disturbance, and anxiety (principal); I10 Essential (primary) hypertension; F41.9 Anxiety disorder, unspecified; Z85.828 Personal history of other malignant neoplasm of skin
CPT/HCPCS: 80048; 80053; 80061; 80307; 81001; 83036; 84443; 85025; 93005; 99285; J1630; J2060